=== PATIENT | male | born 2000 | race Caucasian/White ===

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

== ENCOUNTER 2024-05-29 20:33 | Emergency (ER) | payer OTHER, SELFPAY ==
[2024-05-29] MEDS ORDERED: Acetaminophen 500 MG TAB ONE (20:44)
[2024-05-29 21:29] LABS: Influenza A by NAA Not Detected (NotDetected); Influenza B by NAA Not Detected (NotDetected); SARS-CoV-2 NAA Rapid Test Not Detected (NotDetected)
== END 2024-05-29 22:20 | disposition home or self-care (01) ==
LOC: CSHERS 20:33
DX: B34.9 Viral infection, unspecified (principal); I10 Essential (primary) hypertension
CPT/HCPCS: 99283